=== PATIENT | male | born 1965 | race Caucasian/White ===

== ENCOUNTER → 2020-12-28 | Outpatient (CLI) | payer OTHER ==
--- NOTE | 2021-01-24 08:42 | SLEEP ---
[address] [address] SLEEP STUDY REPORT Name: LALA SHAH Room: WESLEY MITCHELL Kristin.#: [id number] Admission: 12/28/20 Attend Phys: Mundo Mcgowan MD Discharge: Date of : 65 Report #: [id number] THIS REPORT FOR: cc: Sawyer Todd,Sawyer Staples,Mundo ALICIA ~ DATE OF STUDY: 12/28/2020 HOME SLEEP STUDY INTERPRETATION: Total duration of the study is 525 minutes. During this time duration, we recorded multiple sleep-related respiratory events. These included 107 obstructive apneas in addition to 8 central apneas and 77 hypopneas. Overall, apnea-hypopnea index is 21.9. Body position data indicates the patient is lying on the right side through most of the sleep study. There are also multiple desaturations recorded. Overall, the patient spent 55 minutes below O2 saturation of 90%, out of which 11.1 minutes were spent with an O2 saturation less than 88%, mean heart rate was 72. IMPRESSION: Obstructive sleep apnea with an apnea-hypopnea index of 21.9. There is a large number of events. There is a large number of obstructive apneas recorded as above and the patient is lying on the right side throughout the sleep study. There is also nocturnal hypoxemia as described above. RECOMMENDATIONS: Options include the use of CPAP auto titrated device or proceeding to an in-lab sleep study for positive airway pressure titration. Perhaps due to a significant elevation in apnea-hypopnea index as well as the fact that a large proportion of events are obstructive apneas, I would favor a sleep study in the sleep lab for positive airway pressure titration. <ELECTRONICALLY SIGNED> By: Mundo Mcgowan MD 01/24/21 [id number] Mcgowan MD /nt
== END ==
LOC: M.PUL 09:30
PROVIDERS: ATTEND Internal Medicine Critical Care Medicine
DX: G47.33 Obstructive sleep apnea (adult) (pediatric) (principal); G47.34 Idiopathic sleep related nonobstructive alveolar hypoventilation; G47.10 Hypersomnia, unspecified

== ENCOUNTER → 2021-02-05 | Outpatient (CLI) | payer OTHER | LOC: M.SLEEPLAB 19:55 | PROVIDERS: ATTEND Internal Medicine Critical Care Medicine | DX: G47.33 Obstructive sleep apnea (adult) (pediatric) (principal); G47.34 Idiopathic sleep related nonobstructive alveolar hypoventilation ==